=== PATIENT | female | born 1985 | race Caucasian/White ===

== ENCOUNTER 2016-02-25 17:45 | Emergency (ER) | payer OTHER ==
[~2016-02-25] VITALS: Ht 170.2 cm; Wt 71.4 kg
[2016-02-25 17:58] VITALS: BP 107/78; PULSE 60; RESP 16; O2SAT 98
--- NOTE | 2016-02-25 21:01 | ED.REPORT ---
HPI- Female Date of Service Feb 25, 2016 ED Provider: Jose Armando Jessica MD Patient is a 30 year old female with a history of Bartholin's cysts previously needing drainage who presents to the ED with increased pain and swelling of her Bartholin's cyst of the left labia that began this morning. The patient is currently on her period and states that she cannot tell if there is any drainage from the cyst. The patient last had to an abscess drained 3 years ago in the ED. The patient is always able to feel the Bartholin's cyst under the skin, but ir is not typically this large. She reports a subjective fever today but denies any other complaints. Nursing Notes Stated Complaint: BARTHOLIN CYST ABSCESS Chief Complaint: Skin Rash/Abscess Nursing Notes Reviewed: Yes Allergies: Coded Allergies: No Known Allergies (Unverified Allergy, Unknown, 02/25/16) Scheduled Sulfamethoxazole/Trimeth 800-160 mg (Bactrim DS) 1 Each Tablet 1 TABLET PO BID Scheduled PRN Ibuprofen (Ibuprofen) 800 Mg Tablet 800 MG PO TID PRN PRN For Pain General Time Seen by MD: 20:59 Chief Complaint Other (painful bartholin cyst) Hx Obtained From: Patient Arrived By: Walk-in Sudden in Onset?: No Onset Occurred: 13 - 16 hours ago Symptom Duration: Since onset Quality: Painful Severity: Current: Moderate Severity: Maximum: Moderate Recent Healthcare: No recent doctor visit, No recent hospitalization Similar Sx Previous: No Past Medical History Past Medical History recurrent Bartholin's cyst, previously requiring I&D Past Surgical History I&D of Bartholin's cyst Smoking History Unknown if Ever Smoker Social History Other Social History: Good social support, , Local resident Ambulatory Status Independent Review of Systems Constitutional: Reports: Fever, Denies: Chills Female: Reports: Pelvic pain (associated with Bartholin's cyst), Denies: Vaginal bleeding - abnl Complete sys rev & neg: except as marked. Physical Exam Initial Vital Signs Vital Signs (First) Date Time Temp Pulse Resp B/P Pulse Ox O2 Delivery O2 Flow Rate FiO2 02/25/16 17:58 37.1 60 16 107/78 98 Room Air Initial VS: Reviewed Head / Eyes: Atraumatic, Normocephalic, PERRL ENT: Conjunctiva normal, No scleral icterus Neck: Supple, Full range of motion Extremities: Vascular intact, Neuro intact Skin: Warm, Dry, No cyanosis Neurologic: Alert, Oriented, Nonfocal Psychiatric: Mood/affect normal, Behavior normal, Normal thought content Female Genitourinary: Closing Specialist present (Chasidy RAND) External Genitalia: Positive: Bartholin cyst/abscess L (1cm swelling at 4 O' clock. No warmth, erythema, or drainage. ) General/Constitutional: Awake, Alert, No acute distress Respiratory / Chest: No respiratory distress Cardiovascular: Heart rate NL Abdomen: Soft, Non-tender Re-Eval/Medical Decision Med Decision/Clinical Course 30-year-old female history of Bartholin's cyst status post multiple incision and drainage with Word catheter placement in the past presenting with tender Bartholin's cyst since earlier today. No discharge, fevers. On exam there is a 1cm swelling 4 oclock with no redness or warmth. There is no drainage. Unclear if this is simply cyst versus developing early abscess. I gave her the option of incision and drainage which she declined. She would prefer sitz baths at this time with return precautions. She does have follow-up with her [employer]PERATOR on Sunday. I will place her on Bactrim first dose given possibility of early developing abscess. She is advised to return if the pain worsens, redness, discharge, any other new or worsening symptoms. Source of Hx: Old records Re-Evaluation/Progress : Time of Eval: 21:26 Patient Status: Condition improved Re-Evaluation/Progress Note: Patient elects not to have the cyst drained. She would like to follow-up with her [employer] OPERATOR. Patient understands and agrees with the plan. Discharge instructions and follow-up discussed. All questions were addressed. Return to the ED warnings given. Counseled Regarding: Diagnosis, Need for follow-up, When/why to return to ED Discharge & Departure Impression: Primary Impression: Bartholin's cyst Disposition: Home Discharge Condition All VS Reviewed: Yes Condition: Stable Additional Instructions: This could be an early Bartholin's abscess or it could just enlarged. It is not necessary to drain it at this time. Your exam today was reassuring. Do sit baths at home, with Epsom salts and hot water. You should do these several times a day. Take 800mg Ibuprofen every 8 hours as needed for pain. You have also been prescribed Bactrim (antibiotics), you were given the first dose in the emergency department tonight. Follow-up with your [employer] OPERATOR on Sunday as planned. You can call ahead of time to see if they have time to drain it if needed. Return to the emergency department if you develop worsening pain, redness, warmth, fever, or any other concerning symptoms. Referrals: Radha Greer (PCP) Padminiibbrett Attestation Portions of this note were transcribed by Josefina Gaviria. I, Dr. Jessica personally performed the history, physical exam and medical decision-making; I reviewed and confirmed the accuracy of the information in the transcribed note. Signed by: Gagan Nelson, 02/25/2016 [id number] copies to: Radha Greer Ben M MD Feb 25, 2016 21:01 Josefina Gaviria Feb 25, 2016 21:26
[2016-02-25] MEDS ORDERED: Trimethoprim-Sulfa 160 mg-800 mg Tablet PO ONE (21:30)
[2016-02-25] MEDS ORDERED: IBUP800T28 PO (21:31)
[2016-02-25] MEDS ORDERED: SULF1TAB7 PO (21:31)
[2016-02-25 21:38] VITALS: BP 107/78; PULSE 60; RESP 16; O2SAT 98
== END 2016-02-25 21:38 | disposition home or self-care (01) ==
LOC: SED 17:45
DX: N75.0 Cyst of Bartholin's gland (principal); R50.9 Fever, unspecified; Z98.890 Other specified postprocedural states